=== PATIENT | female | born 1960 | race Caucasian/White ===

== ENCOUNTER → 2016-06-29 | Outpatient (CLI) | payer OTHER ==
[~2016-06-29] MED LIST: ACETAMINOPHEN PO; ADVAIR IH; ALBUTEROL MININEB NEB; ALBUTEROL17 GM NEB; IBUPROFEN PO; LORTAB 7.5-5001 TAB PO; SENNA S TABLET1 TAB PO; SINGULAIR PO; VICODIN 5/500 T1 TAB PO; XOPENEX HFA15 GM NEB
[2016-06-29 17:10] LABS: INR 3.7; PROTHROMBIN TIME (PATIENT) 40.6 SECONDS (9.6-11.5)
== END | disposition home or self-care (01) ==
LOC: CLAB 16:25
PROVIDERS: Internal Medicine Cardiovascular Disease
DX: I42.9 Cardiomyopathy, unspecified (principal); I48.91 Unspecified atrial fibrillation; Z95.2 Presence of prosthetic heart valve
CPT/HCPCS: 36415; 85610

== ENCOUNTER → 2016-07-29 | Outpatient (CLI) | payer OTHER ==
[2016-07-29 16:57] LABS: INR 2.5; PROTHROMBIN TIME (PATIENT) 26.8 SECONDS (9.6-11.5)
== END | disposition home or self-care (01) ==
LOC: CLAB 16:26
PROVIDERS: Internal Medicine Cardiovascular Disease
DX: I42.9 Cardiomyopathy, unspecified (principal); I48.91 Unspecified atrial fibrillation; Z95.2 Presence of prosthetic heart valve
CPT/HCPCS: 36415; 85610

== ENCOUNTER → 2016-08-31 | Outpatient (CLI) | payer OTHER ==
[2016-08-31 17:15] LABS: PROTHROMBIN TIME (PATIENT) 32.8 SECONDS (9.6-11.5)
== END | disposition home or self-care (01) ==
LOC: CLAB 16:29
PROVIDERS: Internal Medicine Cardiovascular Disease
DX: Z48.812 Encounter for surgical aftercare following surgery on the circulatory system (principal); Z95.2 Presence of prosthetic heart valve
CPT/HCPCS: 36415; 85610

== ENCOUNTER → 2016-09-28 | Outpatient (CLI) | payer OTHER ==
[2016-09-28 16:57] LABS: INR 3.1; PROTHROMBIN TIME (PATIENT) 34.1 SECONDS (10.0-11.7)
== END | disposition home or self-care (01) ==
LOC: CLAB 16:19
PROVIDERS: Internal Medicine Cardiovascular Disease
DX: Z48.812 Encounter for surgical aftercare following surgery on the circulatory system (principal); Z95.2 Presence of prosthetic heart valve
CPT/HCPCS: 36415; 85610

== ENCOUNTER → 2016-10-27 | Outpatient (CLI) | payer OTHER ==
[2016-10-27 17:08] LABS: INR 2.2; PROTHROMBIN TIME (PATIENT) 23.4 SECONDS (10.0-11.7)
== END | disposition home or self-care (01) ==
LOC: CLAB 16:24
PROVIDERS: Internal Medicine Cardiovascular Disease
DX: Z51.81 Encounter for therapeutic drug level monitoring (principal); Z95.2 Presence of prosthetic heart valve; Z79.01 Long term (current) use of anticoagulants
CPT/HCPCS: 36415; 85610

== ENCOUNTER → 2016-11-25 | Outpatient (CLI) | payer OTHER ==
[2016-11-25 16:23] LABS: INR 2.9; PROTHROMBIN TIME (PATIENT) 31.8 SECONDS (10.0-11.7)
== END | disposition home or self-care (01) ==
LOC: CLAB 15:54
PROVIDERS: Internal Medicine Cardiovascular Disease
DX: Z48.812 Encounter for surgical aftercare following surgery on the circulatory system (principal); Z95.2 Presence of prosthetic heart valve
CPT/HCPCS: 36415; 85610